=== PATIENT | female | born 1935 | race Caucasian/White ===

== ENCOUNTER → 2021-07-23 | Day surgery (SDC) | payer MEDICARE ==
[~2021-07-23] VITALS: Ht 160 cm; Wt 67.1 kg
[~2021-07-23] MED LIST: ALLERGY RELIEF10 M1 PO; ASPIRIN EC81 MG PO; BISOPROLOL-HCT1 EACH PO; CITRACAL + D M1 EACH PO; FLONASE ALLER15.8 ML; HYDRALAZINE25 MG PO; IRBESARTAN300 MG PO; MULTIVITAMIN1 EACH PO; PERCOCET 5-3251 EACH PO
[2021-07-23 06:45] LABS: HCT 40.9 % (37.0-47.0); HGB 13.3 g/dl (12.5-16.0); MCH 29.3 pg (25.0-31.0); MCHC 32.5 g/dL (32.0-36.0); MCV 90.1 fL (78.0-100.0); MPV 9.6 fL (6.0-9.5); RBC 4.54 M/uL (4.20-5.40); RDW 12.9 % (11.5-14.0); WBC 5.6 K/uL (4.0-10.5)
[2021-07-23 07:05] LABS: ALBUMIN 3.4 g/dL (3.4-5.0); BILIRUBIN - TOTAL 0.3 mg/dL (0.2-1.0); BUN/CREAT RATIO (CALC) 25.6 RATIO; CREATININE 0.86 mg/dL (0.51-0.95); GLOBULIN (CALCULATION) 3.2 g/dL; POTASSIUM 3.9 mmol/L (3.5-5.1); TOTAL PROTEIN 6.6 g/dL (6.4-8.2)
== END | disposition home or self-care (01) ==
LOC: FAS 06:04
PROVIDERS: Orthopaedic Surgery
DX: G56.03 Carpal tunnel syndrome, bilateral upper limbs (principal); I10 Essential (primary) hypertension; Z79.82 Long term (current) use of aspirin; Z79.899 Other long term (current) drug therapy
CPT/HCPCS: 36415; 71045; 80053; 93005; J2704; J3010; J7120